=== PATIENT | male | born 1985 | race Caucasian/White ===

== ENCOUNTER 2019-05-18 16:54 | Emergency (ER) | payer OTHER ==
[~2019-05-18] VITALS: Ht 175.3 cm; Wt 99.8 kg
[2019-05-18 17:00] VITALS: BP_SYST 159
[2019-05-18 18:28] VITALS: BP_SYST 144
== END 2019-05-18 18:28 | disposition home or self-care (01) ==
LOC: SED 16:54
DX: J02.9 Acute pharyngitis, unspecified (principal); J40 Bronchitis, not specified as acute or chronic
CPT/HCPCS: 71046-TC; 99283

== ENCOUNTER 2023-01-11 17:50 | Emergency (ER) | payer MEDICAID, OTHER ==
[~2023-01-11] VITALS: Ht 175.3 cm; Wt 108.9 kg
[2023-01-11 18:19] VITALS: BP_SYST 122; PULSE 90; RESP 18; TEMP 98.3; O2SAT 96
[2023-01-11] MEDS ORDERED: AUG875 PO (20:03)
[2023-01-11] MEDS ORDERED: NAPR-1172 PO (20:03)
[2023-01-11 20:36] VITALS: BP_SYST 122; PULSE 90; RESP 18; TEMP 98.3; O2SAT 96
== END 2023-01-11 20:36 | disposition home or self-care (01) ==
LOC: SED 17:50
DX: K11.20 Sialoadenitis, unspecified (principal); R68.84 Jaw pain; Z79.899 Other long term (current) drug therapy
CPT/HCPCS: 99283